=== PATIENT | male | born 1995 | race Caucasian/White ===

== ENCOUNTER → 2016-03-18 | Outpatient (CLI) | payer OTHER ==
--- NOTE | 2016-03-18 11:38 | REP ---
RIGHT HAND SERIES: Four views. HISTORY: Crush injury. FINDINGS: Four views right hand demonstrate a transversely oriented fracture through the mid diaphysis of the 4th metacarpal nondisplaced. There is slight apex dorsal angulation. No other fracture is seen. Associated swelling is noted. IMPRESSION: Nondisplaced mid shaft fracture 4th metacarpal with slight apex dorsal angulation. Signed by Samy Aragon MD 03/18/2016 01:37 P
== END | disposition home or self-care (01) ==
LOC: M WUC 10:24
PROVIDERS: ATTEND Physician Assistant
DX: S62.354A Nondisplaced fracture of shaft of fourth metacarpal bone, right hand, initial encounter for closed fracture (principal); X58.XXXA Exposure to other specified factors, initial encounter; Y92.89 Other specified places as the place of occurrence of the external cause; Y93.89 Activity, other specified; Y99.8 Other external cause status

== ENCOUNTER 2016-10-03 12:26 | Emergency (ER) | payer OTHER, BC ==
[~2016-10-03] VITALS: Ht 177.8 cm; Wt 72.7 kg
[2016-10-03] MEDS ORDERED: CIPROFLOXACIN 400 MG in APPROPRIATE DILUENT 1 EA IV ONE (13:00)
[2016-10-03] MEDS ORDERED: NS 1,000 ML IV SCH (13:00)
[2016-10-03] MEDS: HYDROmorphone HCL 1 MG/ML SYRINGE (J1170) IV PRN ×2 (13:03→13:44)
--- NOTE | 2016-10-03 13:59 | REP ---
LEFT FINGERS: 10/03/2016 CLINICAL HISTORY: Trauma. Laceration multiple digits. COMPARISON: Left hand 07/05/2006 There is a laceration fracture with soft tissue injury of the distal phalanx of the second digit comminution and some small fragments of bone in the soft tissues. The third digit shows soft tissue laceration fractured bone destruction at the DIP joint of that finger with fragments of both the proximal and of the distal phalanx and the distal end of the middle phalanx involved. There is evidence of bone fragmentation in the soft tissue wound. Both of these should be regarded as open fractures. I suspect a laceration of the distal 5th digit adjacent to the peripheral margin of the PIP joint and a possible dorsal injury to the 4th digit distally. No other fracture or focal lesion. IMPRESSION: 1. Open fractures distal tuft, distal phalanx 2nd digit and both middle and distal phalanges of the 3rd digit at the PIP joint with open fracture and fragmentation bone at that site. Soft tissue lacerations 5th and possibly 4th digit as described. Signed by Gumaro Salazar MD 10/03/2016 06:34 P
[2016-10-03] MEDS ORDERED: HYDROmorphone HCL 1 MG/ML SYRINGE (J1170) As Ordered ONE (16:14)
[2016-10-03] MEDS ORDERED: HYDROmorphone HCL 1 MG/ML SYRINGE (J1170) IV ONE (16:15)
[2016-10-03 16:22] VITALS: BP 147/68
== END 2016-10-03 16:23 | disposition short-term general hospital (02) ==
LOC: M ED 12:26
DX: S62.300B Unspecified fracture of second metacarpal bone, right hand, initial encounter for open fracture (principal); S62.302B Unspecified fracture of third metacarpal bone, right hand, initial encounter for open fracture; S61.204A Unspecified open wound of right ring finger without damage to nail, initial encounter; S66.302A Unspecified injury of extensor muscle, fascia and tendon of right middle finger at wrist and hand level, initial encounter; W31.2XXA Contact with powered woodworking and forming machines, initial encounter; Y92.89 Other specified places as the place of occurrence of the external cause; Y93.9 Activity, unspecified; Y99.0 Civilian activity done for income or pay
CPT/HCPCS: 73140; 96365; 96375; 99284; J0744; J1170; J3360

== ENCOUNTER → 2017-08-05 | Outpatient (CLI) | payer BC | LOC: M OUTALCOH 09:05 | DX: Z03.89 Encounter for observation for other suspected diseases and conditions ruled out (principal) ==

== ENCOUNTER 2017-08-13 11:14 | Outpatient (RCR) | payer BC | END 2017-08-30 | LOC: M OUTALCOH 11:14 | DX: Z03.89 Encounter for observation for other suspected diseases and conditions ruled out (principal) ==

== ENCOUNTER 2018-05-25 08:15 | Outpatient (RCR) | payer BC | END 2018-05-31 | LOC: M OUTALCOH 08:15 | PROVIDERS: ATTEND Psychiatry & Neurology Psychiatry | DX: F12.10 Cannabis abuse, uncomplicated (principal) ==

== ENCOUNTER → 2018-06-30 | Outpatient (RCR) | payer BC | LOC: M OUTALCOH 06-03 08:10 | PROVIDERS: ATTEND Psychiatry & Neurology Psychiatry | DX: F12.20 Cannabis dependence, uncomplicated (principal) ==

== ENCOUNTER 2018-07-29 15:54 | Outpatient (RCR) | payer BC | END 2018-07-31 | LOC: M OUTALCOH 15:54 | PROVIDERS: ATTEND Psychiatry & Neurology Psychiatry | DX: F12.20 Cannabis dependence, uncomplicated (principal) ==

== ENCOUNTER 2019-03-27 00:24 | Emergency (ER) | payer BC ==
[~2019-03-27] VITALS: Ht 180.3 cm; Wt 75.2 kg
[2019-03-27 00:25] VITALS: BP 141/77
[2019-03-27] MEDS ORDERED: LIDOCAINE 2% MDV 20 ML VIAL SC ONE (01:15)
== END 2019-03-27 01:37 | disposition home or self-care (01) ==
LOC: M ED 00:24
DX: S61.213A Laceration without foreign body of left middle finger without damage to nail, initial encounter (principal); W26.8XXA Contact with other sharp object(s), not elsewhere classified, initial encounter; Y92.9 Unspecified place or not applicable; Y93.9 Activity, unspecified; Y99.9 Unspecified external cause status; F12.90 Cannabis use, unspecified, uncomplicated; Z88.8 Allergy status to other drugs, medicaments and biological substances